=== PATIENT | female | born 1995 ===

== ENCOUNTER 2017-08-15 21:09 | Emergency (ER) | payer BC ==
[2017-08-15 21:13] VITALS: BP 130/84
--- NOTE | 2017-08-15 21:13 | ER Report ---
History and Physical Time Seen By MD: 21:12 HPI/ROS CHIEF COMPLAINT: Nose laceration HISTORY OF PRESENT ILLNESS: 22-year-old female presents ambulatory ER with concerns about her nose laceration. She sustained a dog bite to the lower rim of her right alar. It was repaired in [place], [place] with Dermabond. 3 days ago. There was some continued bleeding. The wound is slightly in the Dermabond has come off. Patient's concerned the wound won't heal without a step -off. Allergies: Coded Allergies: No Known Drug Allergies (Unverified , 08/15/17) Home Meds Reported Medications [ Control] No Conflict Check 08/15/17 Reviewed Nurses Notes: Yes Old Medical Records Reviewed: Yes Constitutional Vital Sign - Last 24 Hours 08/15/17 21:13 Temp 98.6 Pulse 80 Resp 12 B/P (MAP) 130/84 Pulse Ox 98 O2 Delivery Room Air Physical Exam General appearance: Alert no distress. HEENT: Examination of the nose reveals a very tiny laceration proximally 4-5 mm under the right alar rim. That is gapped open a tiny bit about 1 mm. Wound appears to be crusted altogether. Respiratory: Chest is non tender, lungs are clear to auscultation. Cardiac: Regular rate and rhythm DIFFERENTIAL DIAGNOSIS: After history and physical exam differential diagnosis was considered for nose laceration, wound dehiscence, marginal separation, infection Medical Decision Making ED Course/Re-evaluation ED Course Patient was admitted to an examination room. H&P were done. The differential diagnoses was considered. On clinical examination. The laceration appears to be adhering well together. There is only minimal separation. I do not think sutures will provide any added benefit. Patient's advised good wound care for the next several days to assist in healing. Decision to Disposition Date: Aug 15, 2017 Decision to Disposition Time: 21:18 Depart Departure Latest Vital Signs Vital Signs Date Time Temp Pulse Resp B/P (MAP) Pulse Ox O2 Delivery O2 Flow Rate FiO2 08/15/17 21:13 98.6 80 12 130/84 98 Room Air Impression: Primary Impression: Laceration of nose Condition: Improved Disposition: HOME OR SELF-CARE Patient Instructions: Facial Laceration (ED) Additional Instructions: Perform daily wound care, gently cleanse the area with baby shampoo Apply a thin layer of antibiotic ointment for the next 5 days Problem Qualifiers Primary Impression: Laceration of nose Encounter type: initial encounter Qualified Codes: S01.21XA - Laceration without foreign body of nose, initial encounter AYLA MACARIO DO Aug 15, 2017 21:13
[2017-08-15] MEDS ORDERED: BIRTH CONTROL (21:17)
== END 2017-08-15 21:26 | disposition home or self-care (01) ==
LOC: ER 21:14
DX: S01.21XA Laceration without foreign body of nose, initial encounter (principal)
CPT/HCPCS: 99282